=== PATIENT | female | born 1970 | race Two or more races ===

== ENCOUNTER 2017-12-16 10:20 | Outpatient (CLI) | payer OTHER | END 2017-12-16 10:27 | disposition home or self-care (01) | LOC: SONOGRAMA 10:20 → MAMO-SONO 10:45 | DX: E89.0 Postprocedural hypothyroidism (principal); C73 Malignant neoplasm of thyroid gland ==

== ENCOUNTER 2018-07-03 10:49 | Outpatient (CLI) | payer OTHER | END 2018-07-03 11:15 | disposition home or self-care (01) | LOC: LAB 10:49 | DX: D50.0 Iron deficiency anemia secondary to blood loss (chronic) (principal); D51.8 Other vitamin B12 deficiency anemias; D51.1 Vitamin B12 deficiency anemia due to selective vitamin B12 malabsorption with proteinuria; D51.0 Vitamin B12 deficiency anemia due to intrinsic factor deficiency; D68.8 Other specified coagulation defects; D68.0 Von Willebrand disease; R97.0 Elevated carcinoembryonic antigen [CEA]; R97.8 Other abnormal tumor markers; I10 Essential (primary) hypertension; C73 Malignant neoplasm of thyroid gland; D55.0 Anemia due to glucose-6-phosphate dehydrogenase [G6PD] deficiency; D50.8 Other iron deficiency anemias ==

== ENCOUNTER 2018-12-19 09:49 | Outpatient (CLI) | payer OTHER | END 2018-12-19 10:02 | disposition home or self-care (01) | LOC: SONOGRAMA 09:49 → MAMO-SONO 10:15 | DX: C73 Malignant neoplasm of thyroid gland (principal) ==

== ENCOUNTER → 2023-12-31 07:07 | Outpatient (CLI) | payer OTHER | END | disposition home or self-care (01) | LOC: NUCLEAR 07:00 | PROVIDERS: ATTEND Internal Medicine Sports Medicine | DX: K82.8 Other specified diseases of gallbladder (principal) ==

== ENCOUNTER 2024-01-27 05:00 | Day surgery (SDC) | payer OTHER ==
[2024-01-22 08:57] LABS: PH,URINE 6.5 (5.0-8.0); URINE APPEARANCE Clear; URINE BILIRRUBIN Negative (NEGATIVE); URINE BLOOD Negative; URINE COLOR Yellow; URINE GLUCOSE Negative (NEGATIVE); URINE KETONE Trace (NEGATIVE); URINE LEUKOCYTE Negative; URINE NITRATE Negative; URINE PROTEIN Negative (NEGATIVE)
[2024-01-22 08:59] LABS: URINE BACTERIA 3663.9 uL (0.0-1933); URINE EPITHELIAL CELLS 67.9 uL (0.0-38.8); URINE RBC 36.6 uL (0.0-20.8); URINE WBC 23.9 uL (0.0-23.2)
[2024-01-22 09:03] LABS: HEMATOCRIT 47.5 % (36.0-45.00); HEMOGLOBIN 16.2 g/dL (12.0-15.00); MEAN CELL VOLUME 86.5 fL (80.00-100.00); MEAN CORPUSCULAR HEMOGLOBIN 29.5 pg (27.00-32.0); MEAN CORPUSCULAR HGB CONC 34.1 g/dl (32.0-36.0); PLATELET COUNT 318 K/uL (150-450); RED BLOOD COUNT 5.49 M/uL (4.00-6.00); RED CELL DISTRIBUTION WIDTH 13.4 % (11.5-14.5)
[2024-01-22 09:09] LABS: URINE CAST 0.15 uL (0.0-1.40)
[2024-01-22 09:23] LABS: INR 1.02; PARTIAL THROMBOPLASTIN TIME 29.1 SECONDS (22.0-34.0); PROTHROMBIN TIME 11.1 SECONDS (9.0-11.5)
[2024-01-22 10:15] LABS: BILIRUBIN TOTAL 1.24 mg/dL (0.3-1.2); CALCIUM 9.7 mg/dL (8.5-10.1); CREATININE SERUM 0.87 mg/dL (0.55-1.02); GFR 67.6; GLOBULINA 3.4 G/DL (2.4-3.5); POTASSIUM 4.24 mEq/L (3.5-5.1); TOTAL PROTEIN 7.4 gm/dL (6.4-8.2); TSH 0.556 uIU/mL (0.358-3.74)
[2024-01-27] MEDS ORDERED: BUPIVACAINE HCL 30 ML VIAL IJ ONE (08:45)
[2024-01-27] MEDS ORDERED: CEFAZOLIN SODIUM 1,000 MG VIAL IV ONE (08:45)
[2024-01-27] MEDS ORDERED: SUGAMMADEX SODIUM 200 MG/2 ML VIAL IV ONE (09:15)
[2024-01-27] MEDS ORDERED: CEFAZOLIN SODIUM 1,000 MG VIAL IV SCH (10:00)
[2024-01-27] MEDS ORDERED: FAMOTIDINE/PF 20 MG/10 ML SYRINGE IV SCH (10:00)
[2024-01-27] MEDS ORDERED: MORPHINE SULFATE 4 MG/ML VIAL IV ONE (10:05)
[2024-01-28] MEDS ORDERED: SUGAMMADEX SODIUM 200 MG/2 ML VIAL IV ONE (15:00)
== END 2024-01-27 11:50 | disposition home or self-care (01) ==
LOC: CIR.AMB 05:00
PROVIDERS: ATTEND Specialist
DX: K80.10 Calculus of gallbladder with chronic cholecystitis without obstruction (principal); Z88.2 Allergy status to sulfonamides